=== PATIENT | male | born 1940 | race Caucasian/White ===

== ENCOUNTER 2017-01-03 23:06 | Emergency (ER) | payer OTHER ==
[~2017-01-03 23:06] MED LIST: AMARYL2 PO; ASAB PO; C25 PO; FLAG500TAB PO; FLEX PO; FLORASTOR250 MG PO; GLUCOPHAGE1000 MG PO; GLUMETZA1000 MG PO; HALF81 PO; L20 PO; LEVAQUIN750 MG PO; LIPITOR10 PO; LOP25 PO; LOVENOX40 SC; MAGOX4 PO; NOVOLOG SC; PERCOCET1 TA4 PO; PRIN20 PO; ZOFRAN4 PO
[2017-01-03 23:47] LABS: BE (BASE EXCESS) -2.9 MEQ/L (0 +/- 2.5); CARBOXYHEMOGLOBIN 0.9 % (0-3); HCO3 (ACTUAL BICARBONATE) 20.9 MEQ/L (23-27); HEMOBLOGIN CONTENT 17.7 G/DL (14-18); INSTRUMENT SERIAL # 8087; METHEMOGLOBIN 0.4 % (0-3); O2 CONTENT 23.3 VOL% (18-24); OPERATOR ID 17589; PCO2 (CO2 TENSION) 34 MMHG (35-45); PO2 (O2 TENSION) 74 MMHG (79-93); SAMPLE Arterial
[2017-01-04 00:03] LABS: BASOPHILS 0.2 %; BASOPHILS ABSOLUTE 0.02 10/3/uL (0.0-0.16); EOSINOPHILS 1.1 %; ER CBC TAT 0 Hrs 03 Mins; HEMATOCRIT 48.3 % (40.0-51.0); HEMOGLOBIN 17.1 g/dL (13.6-17.8); IMMATURE GRANULOCYTES 0.2 %; IMMATURE GRANULOCYTES ABSOLUTE 0.02 10/3/uL (0.0-0.11); LYMPHOCYTES 28.4 %; LYMPHOCYTES ABSOLUTE 2.52 10/3/uL (0.67-4.30); MEAN CORPUSCULAR HEMOGLOB 31.7 pg (26.0-34.0); MEAN CORPUSCULAR VOLUME 89.6 fL (80-100); MEAN PLATELET VOLUME 11.2 fL (9.2-13.0); MONOCYTES 9.7 %; MONOCYTES ABSOLUTE 0.86 10/3/uL (0.21-1.20); NEUTROPHILS 60.4 %; NEUTROPHILS ABSOLUTE 5.34 10/3/uL (2.02-8.40); PLATELET COUNT 182 10/3/uL (150-400); RBC DISTRIBUTION WIDTH 12.9 % (12.0-16.0); RED CELL COUNT 5.39 10/6/uL (4.7-6.1); WHITE BLOOD CELLS 8.9 10/3/uL (4.5-10.5)
[2017-01-04 00:04] LABS: MANUAL DIFF NO %; MEAN CORPUS HGB CONC 35.4 g/dL (32.0-36.0)
[2017-01-04 00:10] LABS: INTERNATIONAL NORMAL RATI 2.5 UNITS (-); PARTIAL THROMBO TIME 43.7 SEC (22.5-37.2); PROTIME (NOT ORD) 26.4 SEC (12.0-14.5)
[2017-01-04 00:21] LABS: CALCIUM, SERUM 8.7 MG/DL (8.5-10.4); CHEST PAIN PROFILE TAT 0 Hrs 21 Mins; CHLORIDE, SERUM 101 MMOL/L (96-112); CO2 (CARBON DIOXIDE) 33 MMOL/L (24-34); CREATININE 1.23 MG/DL (0.70-1.30); GFR AFRICAN AMERICAN 65 ML/MIN (>=60); GFR NON AFRICAN AMERICAN 56 ML/MIN (>=60); GLUCOSE, SERUM 129 MG/DL (60-99); POTASSIUM, SERUM 4.4 MMOL/L (3.5-5.3); SODIUM, SERUM 136 MMOL/L (135-148); TROPONIN I <0.02 NG/ML (<0.05)
[2017-01-04 00:22] LABS: BUN (BLOOD UREA NITROGEN) 30 MG/DL (6-23)
[2017-01-31] MEDS ORDERED: L20 PO (16:05)
[2017-01-31] MEDS ORDERED: LIPITOR10 PO (16:05)
[2017-01-31] MEDS ORDERED: KLOR-CON 1010 MEQ PO (16:06)
[2017-01-31] MEDS ORDERED: PRIN2.5 PO (16:06)
[2017-01-31] MEDS ORDERED: ZESTRIL20 MG PO (16:06)
[2017-01-31] MEDS ORDERED: TOPXL25 PO (16:07)
[2017-01-31] MEDS ORDERED: MAGNESIUM PO (16:07)
[2017-01-31] MEDS ORDERED: C2 PO (16:08)
[2017-01-31] MEDS ORDERED: C5 PO (16:09)
[2017-01-31] MEDS ORDERED: GLUCPH PO (16:29)
[2017-02-26] MEDS ORDERED: HALF81 PO (05:06)
[2017-02-26] MEDS ORDERED: PLAVIX PO (05:07)
[2017-02-26] MEDS ORDERED: LIPITOR40 PO (05:07)
[2017-02-26] MEDS ORDERED: L20 PO (05:07)
[2017-02-26] MEDS ORDERED: AMARYL2 PO (05:08)
[2017-02-26] MEDS ORDERED: PRIN2.5 PO (05:08)
[2017-02-26] MEDS ORDERED: MAGOX4 PO (05:09)
[2017-02-26] MEDS ORDERED: TOPXL25 PO (05:10)
[2017-02-26] MEDS ORDERED: GLUCPH PO (05:10)
[2017-02-26] MEDS ORDERED: C2 PO (05:11)
[2017-02-26] MEDS ORDERED: KLOR-CON 1010 MEQ PO (05:11)
[2017-02-26] MEDS ORDERED: C25 PO (05:13)
[2017-03-01] MEDS ORDERED: LEVAQUIN750 MG PO ×2 (12:12→15:47)
[2017-03-01] MEDS ORDERED: FLAG500TAB PO ×2 (12:12→15:48)
[2017-03-01] MEDS ORDERED: PROTONIX PO ×2 (12:12→15:46)
[2017-03-01] MEDS ORDERED: NORCO1 TA1 PO (15:50)
[2017-03-07] MEDS ORDERED: CORDARONE PO ×2 (12:21→12:22)
[2017-03-07] MEDS ORDERED: BEN25 PO (12:25)
== END 2017-01-04 03:40 | disposition home or self-care (01) ==
LOC: ER 23:06
PROVIDERS: Emergency Medicine
DX: I11.0 Hypertensive heart disease with heart failure (principal); I50.9 Heart failure, unspecified; E11.9 Type 2 diabetes mellitus without complications; I48.91 Unspecified atrial fibrillation; Z79.82 Long term (current) use of aspirin; Z79.01 Long term (current) use of anticoagulants
CPT/HCPCS: 36600; 71010; 71275; 80048; 82805; 83735; 83880; 84484; 85025; 85610; 85730; 93005; 96374; 99285; J1940; J2405; Q9967

== ENCOUNTER 2017-02-02 06:15 | Observation (INO) | payer OTHER ==
[~2017-02-02 06:15] MED LIST changes: +C2 PO; +C5 PO; +GLUCPH PO; +KLOR-CON 1010 MEQ PO; +MAGNESIUM PO; +PRIN2.5 PO; +TOPXL25 PO; +ZESTRIL20 MG PO
[2017-02-02 07:00] LABS: BASOPHILS 0.5 %; BASOPHILS ABSOLUTE 0.03 10/3/uL (0.0-0.16); EOSINOPHILS 1.4 %; EOSINOPHILS ABSOLUTE 0.09 10/3/uL (0.0-0.53); HEMOGLOBIN 16.5 g/dL (13.6-17.8); IMMATURE GRANULOCYTES 0.2 %; IMMATURE GRANULOCYTES ABSOLUTE 0.01 10/3/uL (0.0-0.11); LYMPHOCYTES 31.3 %; LYMPHOCYTES ABSOLUTE 1.97 10/3/uL (0.67-4.30); MANUAL DIFF NO %; MEAN CORPUS HGB CONC 33.7 g/dL (32.0-36.0); MEAN CORPUSCULAR VOLUME 91.9 fL (80-100); MEAN PLATELET VOLUME 11.6 fL (9.2-13.0); MONOCYTES 12.7 %; NEUTROPHILS 53.9 %; NEUTROPHILS ABSOLUTE 3.39 10/3/uL (2.02-8.40); PLATELET COUNT 180 10/3/uL (150-400); RED CELL COUNT 5.33 10/6/uL (4.7-6.1); WHITE BLOOD CELLS 6.3 10/3/uL (4.5-10.5)
[2017-02-02 07:06] LABS: INTERNATIONAL NORMAL RATI 1.3 UNITS (-)
[2017-02-02 07:14] LABS: BUN (BLOOD UREA NITROGEN) 21 MG/DL (6-23); CALCIUM, SERUM 8.7 MG/DL (8.5-10.4); CHLORIDE, SERUM 106 MMOL/L (96-112); CHOL/HDL RATIO(NOT ORDER) 2.8 (0-5); CHOLESTEROL 90 MG/DL (< 200); CO2 (CARBON DIOXIDE) 31 MMOL/L (24-34); CREATININE 1.35 MG/DL (0.70-1.30); GFR AFRICAN AMERICAN 58 ML/MIN (>=60); GFR NON AFRICAN AMERICAN 50 ML/MIN (>=60); GLUCOSE, SERUM 124 MG/DL (60-99); HDL CHOLESTEROL 32 MG/DL (> 39); LDL CHOLESTEROL 47 MG/DL (< 130); NON-HDL CHOLESTEROL 58 MG/DL (< 160); POTASSIUM, SERUM 3.7 MMOL/L (3.5-5.3); PROTIME (NOT ORD) 16.3 SEC (12.0-14.5); SODIUM, SERUM 143 MMOL/L (135-148); TRIGLYCERIDE 55 MG/DL (< 150)
[2017-02-03] MEDS ORDERED: PLAVIX PO (04:41)
[2017-02-03] MEDS ORDERED: LIPITOR40 PO (04:42)
[2017-02-03 04:47] LABS: BUN (BLOOD UREA NITROGEN) 17 MG/DL (6-23); CALCIUM, SERUM 8.8 MG/DL (8.5-10.4); CHLORIDE, SERUM 106 MMOL/L (96-112); CO2 (CARBON DIOXIDE) 29 MMOL/L (24-34); CREATININE 1.12 MG/DL (0.70-1.30); GFR AFRICAN AMERICAN 73 ML/MIN (>=60); GFR NON AFRICAN AMERICAN 63 ML/MIN (>=60); GLUCOSE, SERUM 122 MG/DL (60-99); POTASSIUM, SERUM 4.2 MMOL/L (3.5-5.3); SODIUM, SERUM 140 MMOL/L (135-148)
[2017-02-03 04:58] LABS: HEMATOCRIT 46.4 % (40.0-51.0); HEMOGLOBIN 15.5 g/dL (13.6-17.8)
[2017-02-03 04:59] LABS: INTERNATIONAL NORMAL RATI 1.4 UNITS (-); PROTIME (NOT ORD) 17.2 SEC (12.0-14.5)
[2017-02-03] MEDS ORDERED: NITROII20C TOP (09:26)
[2017-02-26] MEDS ORDERED: HALF81 PO (05:06)
[2017-02-26] MEDS ORDERED: PLAVIX PO (05:07)
[2017-02-26] MEDS ORDERED: LIPITOR40 PO (05:07)
[2017-02-26] MEDS ORDERED: L20 PO (05:07)
[2017-02-26] MEDS ORDERED: AMARYL2 PO (05:08)
[2017-02-26] MEDS ORDERED: PRIN2.5 PO (05:08)
[2017-02-26] MEDS ORDERED: MAGOX4 PO (05:09)
[2017-02-26] MEDS ORDERED: TOPXL25 PO (05:10)
[2017-02-26] MEDS ORDERED: GLUCPH PO (05:10)
[2017-02-26] MEDS ORDERED: KLOR-CON 1010 MEQ PO (05:11)
[2017-02-26] MEDS ORDERED: C2 PO (05:11)
[2017-02-26] MEDS ORDERED: C25 PO (05:13)
[2017-03-01] MEDS ORDERED: LEVAQUIN750 MG PO ×2 (12:12→15:47)
[2017-03-01] MEDS ORDERED: PROTONIX PO ×2 (12:12→15:46)
[2017-03-01] MEDS ORDERED: FLAG500TAB PO ×2 (12:12→15:48)
[2017-03-01] MEDS ORDERED: NORCO1 TA1 PO (15:50)
[2017-03-07] MEDS ORDERED: CORDARONE PO ×2 (12:21→12:22)
[2017-03-07] MEDS ORDERED: BEN25 PO (12:25)
== END 2017-02-03 10:36 | disposition home or self-care (01) ==
LOC: CORLMH 06:15 → SSU1 06:23
PROVIDERS: Internal Medicine Cardiovascular Disease
PROC: 3E0 Administration, Physiological Systems and Anatomical Regions, Introduction (ICD-10-PCS; principal; 2017-02-02)
DX: I25.118 Atherosclerotic heart disease of native coronary artery with other forms of angina pectoris (principal); I48.1 Persistent atrial fibrillation; I11.0 Hypertensive heart disease with heart failure; I50.22 Chronic systolic (congestive) heart failure; E78.2 Mixed hyperlipidemia; E11.9 Type 2 diabetes mellitus without complications; E66.9 Obesity, unspecified; Z68.31 Body mass index [BMI] 31.0-31.9, adult; Z90.49 Acquired absence of other specified parts of digestive tract; Z79.899 Other long term (current) drug therapy
CPT/HCPCS: 36120; 80048; 80061; 82962; 85014; 85018; 85025; 85347; 85610; 93005; 93458; 99152; 99153; A9270-GY; C1713; C1725; C1769; C1874; C1887; C1894; C9600; G0378; J2250; J3010; Q9967